=== PATIENT | female | born 1985 | race Caucasian/White ===

== ENCOUNTER → 2020-11-22 13:47 | Outpatient (BNVA) | payer BC, SELFPAY | PROVIDERS: Referring Provider Dermatology; Visit Provider Dermatology | DX: B36.0 Pityriasis versicolor (principal) | CPT/HCPCS: 87220 ==

== ENCOUNTER → 2021-06-16 13:11 | Outpatient (BNVA) | payer BC, SELFPAY | PROVIDERS: Visit Provider Nurse Practitioner Family | DX: Z20.822 Contact with and (suspected) exposure to COVID-19 (principal); J06.9 Acute upper respiratory infection, unspecified | CPT/HCPCS: 87635 ==

== ENCOUNTER → 2021-10-20 14:40 | Outpatient (BNVA) | payer BC, SELFPAY | PROVIDERS: Visit Provider Surgery | DX: Z20.822 Contact with and (suspected) exposure to COVID-19 (principal) | CPT/HCPCS: 87635 ==

== ENCOUNTER 2021-10-25 07:21 | Day surgery (SDC) | payer BC, SELFPAY ==
[2021-10-23 12:04] VITALS: BMI 47.8
--- NOTE | 2021-10-25 06:58 | P.HP_ITS ---
Same Day Surgery H&P Indication for Procedure/HPI DATE OF PROCEDURE: October 25, 2021 CHIEF COMPLAINT/INDICATIONFOR SURGICAL PROCEDURE: Heartburn PREOP DIAGNOSIS: acid reflux associated with morbid obesity PLANNED PROCEDRUE: Operation Date: 10/25/21 08:15 Proposed Procedures p EGD 41732 K21.9(Not Applicable) - Juvencio Rogel MD 07/26/2021 This is a pleasant 35 years old female patient with history of morbid obesity having a weight of 274 pounds and a BMI 48.5. Obesity class III (equal or greater than 40). Obesity related comorbidities gastroesophageal reflux disease and and anxiety/depression. Previous Bariatric surgery not applicable Patient'S quality of life affected in a nonpositive WAY Patient has been struggling with weight and has tried different modalities without obvious success, patient comes today showing interest in Bariatric surgery as a sustained option for obesity management. Interim history 08/23/2021 Patient comes today for follow-up with a current weight of 275 pounds and a BMI 48.6, patient reports that she continues to struggle with her weight yet she does have a 1300 -calorie/day and she have lost some weight per her description. Also continues to have acid reflux disorder associated with her morbid obesity status. 09/20/2021. Patient comes today and continues to show interest in weight loss surgery. She is down to 272 pounds with a current BMI 48.2. Scheduled to undergo diagnostic EGD on October 25, 2021. Patient continues to struggle with her weight and her morbid obesity status. Interim history 10/25/21 Patient comes today for diagnostic EGD ROS All systems have been reviewed negative except as per the above or per problem list. Medications/Allergies* Home Medications Medication Instructions Recorded Confirmed Type alprazolam 0.5 mg tablet 0.5 mg PO DAILY PRN 11/22/20 10/23/21 History fluoxetine 20 mg capsule 60 mg PO DAILY cap 11/22/20 10/23/21 History dextroamphetamine-amphetamine 30 30 mg PO BID 09/20/21 10/23/21 History mg tablet Allergies/Adverse Reactions Allergy/AdvReac Type Severity Reaction Status Date / Time oseltamivir [From Tamiflu] Allergy hands swell Verified 10/25/21 06:59 Pertinent History/Comorbid Conditions* Medical History (Updated 07/28/21 @ 13:07 by Juvencio Rogel MD) Anxiety BMI 45.0-49.9, adult Depression GERD (gastroesophageal reflux disease) Morbid obesity Surgical History (Updated 11/23/20 @ 12:13 by Sierra Crystal DO) History of Family History (Updated 11/22/20 @ 14:18 by Dulce Strange LPN) Diabetes Hypertension Social History Alcohol intake: never Pertinent Exam Findings alert, oriented x 3, regular rate & rhythm and procedure specific exam findings Recommendations Surgery/Procedure today (Diagnostic EGD with possible biopsy) Other Plans: Plan of care; After thorough history and physical examination and reviewing the chart, plan to perform a diagnostic esophagogastroduodenoscopy with possible biopsy in the GI lab. I discussed with the patient in detail the risk,benefits,alternatives and indications.The risk of aspiration, bleeding, soft tissue injury, perforation of the stomach/esophagus and other potential concomitant complications were explained to the patient in details,aslo the potential need for Thoracic and or Abdominal surgery to repair any complications.The patient understood this well and did agree to proceed. Rationale was carefully and clearly discussed with the patient.Appropriate informed consent have been reviewed and signed All questions have been answered and all concerns have been addressed to patient's satisfaction. Coding Level of Care Code Acute Audio Installer for Sharon Valente
--- NOTE | 2021-10-25 07:47 | ANES.PREANE2 ---
Pre-Anesthetic Assessment Pre-Anesthetic Assessment: Height/Weight: Height 1.6 m Weight 122.47 kg Preop Diagnosis: Acid reflux associated with morbid obesity Proposed Procedure: Operation Date: 10/25/21 08:15 Proposed Procedures p EGD 09645 K21.9(Not Applicable) - Juvencio Rogel MD Was Beta Aramis taken within 24 hours: N/A Was Clonidine taken within 24 hours: N/A Social: Social History: No alcohol and No tobacco Exam: Pre-Anes Outpt Exam: alert, oriented x 3, clear to auscultation bilaterally and regular rate & rhythm Airway: Submandibular: WNL Cervical ROM: WNL MP: 2 Dentition: Chipped Metabolic: Metabolic: Morbid obesity Neuropsych: Neuropsych: Anxiety and Depression Anesthetic Plan: ASA status: 2 Anesthesia: MAC Risk of > 500 ml blood loss (7ml/kg in children): No PFSH Anesthesia PFSH: Medical History Anxiety BMI 45.0-49.9, adult Depression GERD (gastroesophageal reflux disease) Morbid obesity Surgical History History of Family History Other Diabetes Hypertension Social History Alcohol intake: never Female Reproductive History: Date of last menstrual period: 09/25/21 Data Anesthesia Cardiac Studies: No Data to Display
[2021-10-25 08:00] VITALS: BP 146/105; PULSE 94; RESP 16; TEMP 36.1; O2SAT 99
[2021-10-25] MEDS: sodium chloride 0.9% 1,000 ML 30 ML IV (08:11)
[2021-10-25 08:13] LABS: OR HCG Qualitative Urine Negative (Negative)
[2021-10-25 09:32] VITALS: BP 133/94; PULSE 94; RESP 16; TEMP 36.4; O2SAT 93
[2021-10-25 09:42] VITALS: BP 134/97; PULSE 85; RESP 18; O2SAT 98
[2021-10-25 09:52] VITALS: BP 155/109; PULSE 72; RESP 18; TEMP 36.3; O2SAT 98
--- NOTE | 2021-10-25 14:09 | ANE.PACU2 ---
Inpatient post-anesthesia follow up: Airway intact: Yes Vital signs: Temperature 97.4 F Pulse Rate 72 Respiratory Rate 18 Blood Pressure 155/109 Pulse Oximetry 98 Oxygen Delivery Me thod Room Air Oxygen Flow Rate 3 Fraction of Inspir ed Oxygen Hydration adequate: Yes Nausea and vomiting: No Pain level: 1 Mental status: Baseline
[2021-10-26 09:06] LABS: H. Pylori / CLO Test Negative
== END 2021-10-25 10:10 | disposition home or self-care (01) ==
PROVIDERS: Anesthesiology; PCP Family Medicine; Visit Provider Surgery
PROC: 0DJ08ZZ Inspection of Upper Intestinal Tract, Via Natural or Artificial Opening Endoscopic (ICD-10-PCS; CPT 43235; principal; 2021-10-25 08:15)
DX: K21.00 Gastro-esophageal reflux disease with esophagitis, without bleeding (principal); K29.70 Gastritis, unspecified, without bleeding; E66.01 Morbid (severe) obesity due to excess calories; Z68.42 Body mass index [BMI] 45.0-49.9, adult; F41.9 Anxiety disorder, unspecified; F32.A Depression, unspecified
CPT/HCPCS: 43239; 81025; 84703; 87077; 96360; 96361; J2704; J3490; J7030